=== PATIENT | female | born 1990 | race Caucasian/White ===

== ENCOUNTER → 2019-11-05 | Outpatient (CLI) | payer OTHER | END | disposition home or self-care (01) | LOC: PRENATAL 10:00 | DX: Z36.82 Encounter for antenatal screening for nuchal translucency (principal); O36.80X1 Pregnancy with inconclusive fetal viability, fetus 1; O99.89 Other specified diseases and conditions complicating pregnancy, childbirth and the puerperium; Z3A.12 12 weeks gestation of pregnancy ==

== ENCOUNTER → 2019-12-28 | Outpatient (CLI) | payer OTHER | END | disposition home or self-care (01) | LOC: PRENATAL 10:00 | DX: O35.3XX1 Maternal care for (suspected) damage to fetus from viral disease in mother, fetus 1 (principal); O99.89 Other specified diseases and conditions complicating pregnancy, childbirth and the puerperium; O34.43 Maternal care for other abnormalities of cervix, third trimester ==